=== PATIENT | male | born 1930 | race Caucasian/White ===

== ENCOUNTER 2016-12-24 10:53 | Inpatient (IN) ==
--- NOTE | 2016-12-23 21:45 | Discharge Summary ---
<Katrina Salguero - Last Filed: 12/23/16 21:41> Date of Encounter: 12/23/16 - Discharge Diagnosis (1) Arthritis of knee, left Priority: Primary Status: Acute (2) Status post total knee replacement, left Priority: Primary Status: Acute (3) BPH (benign prostatic hyperplasia) Priority: Secondary Status: Chronic Qualifiers: Lower urinary tract symptom presence: unspecified whether lower urinary tract symptoms present Qualified Code(s): N40.0 - Benign prostatic hyperplasia without lower urinary tract symptoms - Discharge Medications Home Medications: Aspirin Enteric Coated [Aspirin EC] 325 mg PO DAILY #21 tablet. 12/23/16 [Rx] OxyCODONE Immed Rel [Roxicodone 5 MG] 5 - 10 mg PO Q6HR PRN #40 tablet 12/23/16 [Rx] Artificial Tears SOLN [Akwa Tears] 1 drop BOTH EYES QID 12/24/16 [History] Ascorbic Acid/Vitamin E/Biotin [Hair Skin Nails-Biotin Gummies] 1 each PO DAILY 12/24/16 [History] Calcium Carbonate [Calcium] 500 mg PO DAILY 12/24/16 [History] Cholecalciferol (D-3) [Vitamin D] 2,000 unit PO DAILY 12/24/16 [History] Garlic 1,000 mg PO DAILY 12/24/16 [History] [place]-3/Dha/Epa/Fish Oil [Fish Oil 1,000 mg Softgel] 1 each PO DAILY 12/24/16 [ History] Tamsulosin [Flomax] 0.4 mg PO DAILY 12/24/16 [History] Vitamin B Complex [B Complex] 1 each PO DAILY 12/24/16 [History] Vitamin E Acid Succinate [Vitamin E] 400 units PO DAILY 12/24/16 [History] Allergies/Adverse Reactions: 3 Allergy/AdvReac Type Severity Reaction Status Date / Time No Known Allergies Allergy Verified 12/24/16 12:35 [facility] - Patient Status Disposition: Home, Self-Care Condition: Good - Discharge Instructions Follow Up With: [facility] [Primary Care Provider] - - Hospital Course Hospital course: Mr. Orourke is a 86 year old male - Time Spent with Patient Total time spent providing and/or coordinating discharge services: <Lane Fuentes - Last Filed: 08/29/17 06:43> Date of Encounter: 12/25/16 Time of Encounter: 06:42 - Discharge Diagnosis (1) Arthritis of knee, left Priority: Primary Status: Chronic (2) Status post total knee replacement, left Priority: Primary Status: Acute (3) BPH (benign prostatic hyperplasia) Priority: Secondary Status: Chronic Qualifiers: Lower urinary tract symptom presence: unspecified whether lower urinary tract symptoms present Qualified Code(s): N40.0 - Benign prostatic hyperplasia without lower urinary tract symptoms [facility] care physician: [facility] - Patient Status Functional capacity at discharge: uses cane/walker Overall status at discharge: patient is progressing back to baseline - Hospital Course Hospital course: Mr. Orourke is a 86 year old male Status post left total knee replacement The patient had an uneventful postoperative course. They received antibiotics and physical therapy and were discharged in stable condition. There will follow -up in the office in 2 weeks. - Time Spent with Patient Total time spent providing and/or coordinating discharge services:
--- NOTE | 2016-12-24 11:14 | History & Physical Report ---
Date of Encounter: 12/24/16 Time of Encounter: 11:13 24 Hour HP Update - Instructions Instructions: If the History and Physical is less than 30 days old and was completed prior to A.M. admission and or procedure and has NOT been updated on calendar day of procedure please complete this update prior to performing procedure. - Update Patient reports changes in Medical Condition: No Changes in examination, assessment, or condition: No Changes in Medication: No Preop tests/diagnostics Reviewed: Yes Surgery Remains Indicated: Yes Consent for Planned Operative Procedure(s) Verified: Yes - Pre-Operative Checklist Preoperative Checklist Indicated: No Prophylactic Antibiotic Ordered: Yes Is VTE Prophylaxis Indicated?: Yes
[2016-12-24] MEDS ORDERED: Gabapentin 300 MG CAPSULE PO ONE (11:22)
[2016-12-24] MEDS ORDERED: Famotidine 20 MG/2 ML VIAL IVP ONE (11:22)
[2016-12-24] MEDS ORDERED: Acetaminophen IV 1,000 MG/100 ML INFUS..BTL IVPB ONE (11:23)
[2016-12-24] MEDS ORDERED: *HR* FentaNYL (PF) 100 MCG/2 ML VIAL ONE (11:24)
[2016-12-24] MEDS ORDERED: *HR* Propofol 200 MG/20 ML VIAL IVP ONE (11:24)
[2016-12-24] MEDS ORDERED: *HR* Midazolam HCl 2 MG/2 ML VIAL ONE (11:24)
[2016-12-24] MEDS ORDERED: Lidocaine -MPF 2% 2 ML VIAL ONE (11:28)
[2016-12-24] MEDS ORDERED: Plasma-Lyte A (PH 7.4) 1,000 ML IVC SCH (11:30)
[2016-12-24] MEDS ORDERED: CeFAZolin Pre 2,000 MG/100 ML 2,000 MG/100 ML BAG IVPB ONE (11:49)
--- NOTE | 2016-12-24 12:10 | Anesthesia Evaluation PreOp ---
Date of Encounter: 12/24/16 Time of Encounter: 12:10 - Past History Planned Operation: Left TKA Cardiac History: Denies any Significant Hx Pulmonary History: Former smoker SECURITY GUARD DISPATCHER History: Denies Any Significant HX Other Medical History: Denies Any Significant HX, Other (OA Knee) Anesthesia History: No Prior Anesthetic Complications Alcohol Use: occasionally Drug use: none Medications and Allergies Aspirin Enteric Coated [Aspirin EC] 325 mg PO DAILY #21 tablet. 12/23/16 [Rx] OxyCODONE Immed Rel [Roxicodone 5 MG] 5 - 10 mg PO Q6HR PRN #40 tablet 12/23/16 [Rx] 3 Allergy/AdvReac Type Severity Reaction Status Date / Time No Known Allergies Allergy Verified 12/12/16 09:03 - Meds/Allergy Pre-op Review Medications Reviewed: Yes Allergies Reviewed: Yes Beta Blockers on Current Med List: No Anesthesia Results - Labs Laboratory Tests 12/12/16 12/12/16 12/13/16 10:19 10:19 08:25 Hgb 14.6 Hct 44.3 Plt Count 187 Sodium 139 Potassium 5.0 H BUN 23 Creatinine 0.96 - Imaging EKG: report reviewed (SB) Anesthesia Exam O2 Sat Height 1.7 m Height 1.7 m Height 1.7 m Weight 84.368 kg Weight 84.368 kg Weight 84.368 kg O2 Sat by Pulse Oximetry 98 O2 Sat by Pulse Oximetry 98 Vital Signs Temp Pulse Resp BP Pulse Ox 97.8 F 53 18 135/67 98 12/24/16 11:25 12/24/16 11:25 12/24/16 11:25 12/24/16 11:25 12/24/16 11:25 Height: 5'7 Weight: 186 lbs NPO (# of Hours): MN Pain Scale: 0 - HEENT Pupil (Motor): Pupils equal, EOMI Mallampati: II Teeth: Normal Oral Opening: Greater than 3 - SECURITY GUARD DISPATCHER LOC: Oriented SECURITY GUARD DISPATCHER Motor: Normal RUE, Normal LUE, Normal RLE, Normal LLE, Normal Face SECURITY GUARD DISPATCHER Sensory: Normal: RUE, LUE, RLE, LLE, Face - Cardiac Rhythm: Regular Murmur: None JVD: No Carotid Bruit: No - Pulmonary Breath Sounds: bilateral Clear Respiratory Effort: Symmetrical Anesthesia Assess/Plan ASA Score: 2 Modified Wilver Scale for Level of Consciousness: Cooperative, oriented, and tranquil Anesthetic Plan: General, Regional Monitoring Plan: Standard Monitors Recovery Plan: PACU (Discussed GA and RA, agrees to proceed)
[2016-12-24] MEDS ORDERED: ROPIVACAINE HCL/PF 0.5% 30 ML VIAL ONE (12:24)
[2016-12-24] MEDS ORDERED: Bupivacaine/Clonidine Syringe 1 EACH SYRINGE ONE (12:25)
--- NOTE | 2016-12-24 12:46 | Anesthesia Procedures ---
Date of Encounter: 12/24/16 Time of Encounter: 12:44 Procedures: Anesthesia - Nerve Block Procedure Date: 12/24/16 Time: 12:44 Allergies/Adv Reactions: Allergies No Known Allergies Allergy (Verified 12/24/16 12:35) Pre-op Diagnosis: oa left knee Surgical Procedure: left total knee Checklist: Correct Patient Identifier, Correct procedure, History checked Correct side: Left Blood Thinner: No Monitor Applied: EKG, BP, Pulse Oximetry Sedation: Versed (mg): 1 Sedation: Fentanyl (mcg): 100 Indication: Post Op Analgesia Pre-op Neuro Deficits: No Block Type: Femoral (30cc 0.5%ropivicaine), Other (iPACK 20cc 0.25% bupivicaine) Catheter placed: No Sterile Technique: Yes Ultrasound used: Yes Anatomy identified: Yes Visual spread of Local: Yes Neuro Stimulation: Yes Nerve Stimulator Range: 0.2 - 0.4 mA Blood on Needle Aspiration: No Smooth Injection of Local: Yes Pain with Injection of Local: No Prep: Chlorhexadine Needle: 22 x 50 mm Stimuplex Local: 0.25% Bupivicaine w/Clonidine 20 mcg/cc, Ropivacaine Volume (cc): 50 Number of Attempts: 1 Complications: None/effective block
[2016-12-24] MEDS ORDERED: Ondansetron 4 MG/2 ML VIAL IVP ONE (12:47)
[2016-12-24] MEDS ORDERED: *HR* Labetalol 20 MG/4 ML SYRINGE IVP PRN (12:47)
[2016-12-24] MEDS ORDERED: EPHEDrine 50 MG/ML VIAL ONE (13:04)
[2016-12-24] MEDS ORDERED: Dexamethasone 4 MG/ML VIAL ONE (13:16)
[2016-12-24] MEDS ORDERED: Ondansetron 4 MG/2 ML VIAL ONE (13:16)
--- NOTE | 2016-12-24 13:43 | Orthopedic Operative Note ---
Date of procedure: 12/24/16 Pre-op diagnosis: Left knee arthritis Post-op diagnosis: same Procedure: Procedure: Left Total knee replacement Estimated blood loss: 400 cc Hardware: Metal and polyethylene replacement. Arthrex Femur: 7 Tibia: 7 PS insert: 14 Patella: 40 Exam Under anesthesia: Full flexion and extension no instability Procedural Notes: Grade 4 arthritic changes all 3 compartments Operative procedure: The patient was brought to the operating room and placed on the operating room table. After general anesthesia was administered the operative knee was examined. Findings were noted in the exam under anesthesia. The operative extremity was prepped and draped in sterile surgical fashion. The patient received IV antibiotics prior to skin incision. A standard midline incision was made centered over the patella. The incision was made through the skin and subcutaneous tissue. A medial parapatellar tendon approach was performed. Care was taken to preserve tissue along the medial aspect of the patella. And to protect the patella tendon. The deep MCL was released off the medial tibia. The infra patella fat pad was excised. Knee was brought into flexion. Patient noted to have grade 4 arthritic changes all 3 compartments. The entry hole was made for the intramedullary femoral guide. The guide was seated in 6 degrees of valgus. Anterior cut was made followed by the distal cut. The ACL the PCL the medial and the lateral menisci were excised. The tibia was subluxed forward. The entry hole was made for the intramedullary tibial guide. Guide was seated to resect 2 mm off the more abnormal side. The knee was brought into flexion the distal femur was sized to a 7. The femoral guide was seated, the anterior cut was made followed by the posterior condylar cut, followed by the chamfer cuts. The finishing guide was seated the box cut was made and the lug holes were drilled. The tibia was sized to a 7, the tibial tray was seated and prepared with the large drill followed by the fin cutter. Trial reduction revealed full extension no varus valgus instability with the appropriate 14 PS Juliet. The patella was everted and cut was made at the level of the insertion of the quadriceps and patella tendon. The patella was sized to a 40 the guide was seated and the lug holes are drilled. Trial reduction revealed excellent patella tracking. All trial components were removed all bony surfaces were irrigated. The tibia was cemented first followed by the femur. The 14 PS Juliet was seated and the knee was brought into full extension. The patella was cemented and held in place with the patellar holding clamp. After the cement had hardened, the knee sat for 2 minutes with a Betadine saline solution. The knee was then irrigated out with 2 L of pulse irrigation. The knee was closed by the PA. The extensor mechanism was closed with #2 FiberWire suture and #2 PDS suture. The subcutaneous tissue was then irrigated and closed deep with #1 PDS suture superficially with 0 PDS suture and skin was closed with skin gabriela. The patient was then placed in a sterile dressing and a postoperative brace extubated and transferred to recovery room in stable condition. Anesthesia: ALAN Surgeon: Lane Fuentes Manager Net: Katrina Salguero Condition: stable Disposition: PACU
[2016-12-24] MEDS: *HR* HYDROmorphone (PF) 1 MG/ML SYRINGE IVP PRN ×2 (14:33→14:38)
--- NOTE | 2016-12-24 14:35 | Anesthesia Evaluation Post Op ---
Date of Encounter: 12/24/16 Time of Encounter: 14:40 - Vital Signs Vital Signs: Vital Signs/O2 Sat/Glucose, Most Current Temp Pulse Resp BP Pulse Ox 12/24/16 14:11 97.5 F L 52 18 157/78 98 12/24/16 12:40 48 16 117/66 100 12/24/16 12:29 48 132/82 94 12/24/16 11:57 97.8 F 53 18 135/67 98 12/24/16 11:25 97.8 F 53 18 135/67 98 - Lungs Lungs: Clear Ascult./Percussion - Airway Airway: Non-obstructed - Cardiovascular Regular Rate - Mental Status Mental Status: Alert & Oriented, Answers Appropriately - Pain Pain Scale: 0 - Nausea Vomiting Nausea Vomiting: Not Present - Hydration Hydration: Ice chips - Discharge PostOp Status: Transfer Patient to floor
[2016-12-24 14:37] LABS: Hematocrit 38.8 % (37.5-50.1); Hemoglobin 12.7 g/dL (12.9-16.9)
[2016-12-24] MEDS ORDERED: Sennosides 8.6 MG TABLET PO PRN (15:02)
[2016-12-24] MEDS ORDERED: Ringers Solution, Lactated 1,000 ML IVC SCH (15:02)
[2016-12-24] MEDS ORDERED: MOM Conc 10 ML UD.LIQ PO PRN (15:02)
[2016-12-24] MEDS ORDERED: *HR* OxyCODONE Immed Rel 5 MG TABLET PO PRN (15:02)
[2016-12-24] MEDS ORDERED: Naloxone 0.4 MG/ML INJ IVP PRN (15:02)
[2016-12-24] MEDS: ceFAZolin 2,000 MG in D5% in Water 100 ML IVPB SCH (17:52)
[2016-12-24] MEDS: *HR* Enoxaparin 30 MG/0.3 ML SYRINGE SQ SCH (17:53)
[2016-12-24] MEDS: Artificial Tears SOLN 15 ML BOTTLE BOTH EYES SCH ×2 (17:53→21:09)
[2016-12-24] MEDS ORDERED: *HR* Enoxaparin 30 MG/0.3 ML SYRINGE SQ SCH (18:00)
[2016-12-24] MEDS ORDERED: Temazepam 15 MG CAPSULE PO PRN (21:00)
[2016-12-25] MEDS: ceFAZolin 2,000 MG in D5% in Water 100 ML IVPB SCH
[2016-12-25] MEDS: *HR* OxyCODONE Immed Rel 5 MG TABLET PO PRN ×4 (01:34→15:28)
[2016-12-25 05:18] LABS: BUN/Creatinine Ratio 17 (6-26); Blood Urea Nitrogen 17 mg/dL (8-26); Calcium 8.1 mg/dL (8.6-10.8); Carbon Dioxide 27 mEq/L (19-29); Chloride 100 mEq/L (98-109); Glucose 131 mg/dL (70-99); Osmolality,Calculated 283 (280-300); Potassium 4.9 mEq/L (3.5-4.5); Sodium 135 mEq/L (136-145); eGFR For African Americans > 60 (> 60); eGFR For Non-African Americans > 60 (> 60)
[2016-12-25] MEDS: *HR* Enoxaparin 30 MG/0.3 ML SYRINGE SQ SCH ×2 (05:45→18:56)
--- NOTE | 2016-12-25 06:44 | Orthopedics Progress Note ---
Date of Encounter: 12/25/16 Time of Encounter: 06:43 - Assessment and Plan (1) Arthritis of knee, left Current Visit: Yes Status: Chronic (2) Status post total knee replacement, left Current Visit: Yes Status: Acute (3) BPH (benign prostatic hyperplasia) Current Visit: Yes Status: Chronic Qualifiers: Lower urinary tract symptom presence: unspecified whether lower urinary tract symptoms present Qualified Code(s): N40.0 - Benign prostatic hyperplasia without lower urinary tract symptoms Subjective Interval history: Patient was seen this morning doing well without complaints. Afebrile vital signs stable. Operative extremity: Neurovascularly intact Dressing clean dry and intact Calves nontender Assessment and plan: Continue with postoperative care Hematocrit 35 discharged today Objective Vital signs: Vital Signs Temp Pulse Resp BP Pulse Ox 12/25/16 03:55 98.2 F 51 18 131/61 96 12/24/16 23:35 97.7 F 53 18 113/59 98 12/24/16 19:09 97.6 F 54 16 118/61 97 12/24/16 18:03 50 14 117/71 96 12/24/16 15:56 97.5 F L 48 16 128/59 96 12/24/16 15:08 97.6 F 54 16 123/71 98 12/24/16 15:01 97.1 F L 56 16 118/73 95 12/24/16 14:51 54 16 139/68 97 12/24/16 14:41 97.1 F L 51 16 133/63 96 12/24/16 14:31 45 14 139/70 99 12/24/16 14:21 49 13 121/68 98 12/24/16 14:11 97.5 F L 52 18 157/78 98 12/24/16 12:40 48 16 117/66 100 12/24/16 12:29 48 132/82 94 12/24/16 11:57 97.8 F 53 18 135/67 98 12/24/16 11:25 97.8 F 53 18 135/67 98 Intake and Output 12/24/16 12/24/16 12/25/16 15:59 23:59 07:59 Intake Total 200 / 200 340 / 340 100 / 100 Output Total 400 / 400 0 / 0 1225 / 1225 Balance -200 / -200 340 / 340 -1125 / -1125 Intake: IV Fluids 100 / 100 100 / 100 Ancef 2,000 MG In 100 / 100 100 / 100 Dextrose 5% 100 ML @ 200 mls/hr IVPB Q8HR [facility] Rx#: [id number] Oral 200 / 200 240 / 240 Output: Urine 0 / 0 0 / 0 1225 / 1225 Estimated Blood Loss 400 / 400 Other: Weight 84.368 kg 86.18 kg Patient Weight 12/25/16 23:59 Weight 86.18 kg - Labs CBC & BMP: 12/25/16 04:27 12/25/16 04:27 Labs: Abnormal lab results Hgb 12.0 g/dL (12.9-16.9) L 12/25/16 04:27 Hct 35.0 % (37.5-50.1) L 12/25/16 04:27 Sodium 135 mEq/L (136-145) L 12/25/16 04:27 Potassium 4.9 mEq/L (3.5-4.5) H 12/25/16 04:27 Glucose 131 mg/dL (70-99) H 12/25/16 04:27 Calcium 8.1 mg/dL (8.6-10.8) L 12/25/16 04:27 - VTE Documentation of Mechanical Device: Venous foot pump, device Consult Discharge Plan - Plan [facility]errals: [facility] [Primary Care Provider] -
[2016-12-25] MEDS: ASCORBIC ACID PO SCH (08:18)
[2016-12-25] MEDS: VITAMIN B COMPLEX PO SCH (08:18)
[2016-12-25] MEDS: BIOTIN PO SCH (08:18)
[2016-12-25] MEDS: (Omega-3/Dha/Epa/Fish Oil [Fish Oil 1,000 Mg Softgel]) PO SCH (08:18)
[2016-12-25] MEDS: VITAMIN E PO SCH (08:18)
[2016-12-25] MEDS: Cholecalciferol (D-3) 1,000 UNIT TABLET PO SCH (08:20)
[2016-12-25] MEDS: Artificial Tears SOLN 15 ML BOTTLE BOTH EYES SCH ×4 (08:21→21:21)
--- NOTE | 2016-12-25 12:13 | Event Note ---
Date of Encounter: 12/26/16 Time of Encounter: 12:12 PCR - Left TKR - POD#1 - *Zipline Patient seen at bedside. Labs stable. Resting in bed. Discussed care with family Pain control: adequate Participating in PT. All questions and concerns addressed. Educated on use of incentive spirometer, ambulation, and hydration. Patient educated on post-operative restrictions and care. Addressed: See above D/C plan:. PT recommending Swingbed
--- NOTE | 2016-12-25 12:15 | Physician Discharge Referral ---
<Katrina Salguero - Last Filed: 12/25/16 12:13> [facility] Referral Info Transfer To: F Provider in Charge after Transfer: PCP Institutional Level of Care: Skilled - Diagnosis (1) Arthritis of knee, left Priority: Primary Status: Chronic (2) Status post total knee replacement, left Priority: Primary Status: Acute (3) BPH (benign prostatic hyperplasia) Priority: Secondary Status: Chronic Expected Duration of Placement: < 30 days Prognosis: Good Aware of Diagnosis: Patient Aware of Prognosis: Patient - Transfer Medications Home Medications: Aspirin Enteric Coated [Aspirin EC] 325 mg PO DAILY #21 tablet. 12/23/16 [Rx] OxyCODONE Immed Rel [Roxicodone 5 MG] 5 - 10 mg PO Q6HR PRN #40 tablet 12/23/16 [Rx] Artificial Tears SOLN [Akwa Tears] 1 drop BOTH EYES QID 12/24/16 [History] Ascorbic Acid/Vitamin E/Biotin [Hair Skin Nails-Biotin Gummies] 1 each PO DAILY 12/24/16 [History] Calcium Carbonate [Calcium] 500 mg PO DAILY 12/24/16 [History] Cholecalciferol (D-3) [Vitamin D] 2,000 unit PO DAILY 12/24/16 [History] Garlic 1,000 mg PO DAILY 12/24/16 [History] [place]-3/Dha/Epa/Fish Oil [Fish Oil 1,000 mg Softgel] 1 each PO DAILY 12/24/16 [ History] Tamsulosin [Flomax] 0.4 mg PO DAILY 12/24/16 [History] Vitamin B Complex [B Complex] 1 each PO DAILY 12/24/16 [History] Vitamin E Acid Succinate [Vitamin E] 400 units PO DAILY 12/24/16 [History] Ketorolac Tromethamine [Acular] 1 drop OP TID 12/25/16 [History] Allergies/Adverse Reactions: 3 Allergy/AdvReac Type Severity Reaction Status Date / Time No Known Allergies Allergy Verified 12/24/16 12:35 - Respiratory Orders None Smoking Cessation: Smoking cessation has been advised. For more information, call the [place] Tobacco Quit Line at 3-728-BCPK-NOW. - Ancillary Orders May use pressure relief devices daily prn, May go on SHERRILL w/family/respon libertarian w /meds at nurse discretion PRN, May consult with Dentist, Director Biomedical Engineering, Contact Lens Blocker PRN - Mobility Orders Chair, Ambulate - Rehabiliation Orders Rehab Potential: Good Rehab Orders: ROM Exercises, Evaluation for Physical Therapy, Evaluation for Occupational Therapy Other: Opsite dressing, leave intact until first post-operative visit. Zipline Closure* plan to remove at post-operative day #14-16. If dressing becomes >50% saturated, contact office, remove dressing and place appropriate dressing in its place. Do not allow for dressing to get wet. Total Joint Precautions x 6 weeks Apply cold therapy wrap 3-6x/day for 20 minutes at a time. Encourage ambulation throughout the day Use Incentive spirometer 10x/hour. Elevate affected extremity above heart as tolerated. Brace: Wear knee immobilizer at night x 2 weeks. CERTIFICATION: I certify that the transfer of the above named patient to an Extended Care Facility is necessary for the continuing treatment of the diagnosis listed. The above information is true and accurate reflection of patient's current condition. Confidential - Redisclosure prohibited without a patient's written consent. <Lane Fuentes - Last Filed: 12/27/16 05:51> - Diagnosis (1) Arthritis of knee, left Status: Chronic (2) Status post total knee replacement, left Status: Acute (3) BPH (benign prostatic hyperplasia) Status: Chronic - Respiratory Orders Smoking Cessation: Smoking cessation has been advised. For more information, call the [place] Tobacco Quit Line at 6-929-GFRL-NOW. CERTIFICATION: I certify that the transfer of the above named patient to an Extended Care Facility is necessary for the continuing treatment of the diagnosis listed. The above information is true and accurate reflection of patient's current condition. Confidential - Redisclosure prohibited without a patient's written consent.
[2016-12-25] MEDS: Ketorolac OPTH Soln 5 ML BOTTLE BOTH EYES SCH ×2 (15:30→21:21)
--- NOTE | 2016-12-25 16:58 | Electrocardiograph Report ---
[address] [address] Test Date: 2016-12-24 Pat Name: Wood Orourke Department: 106 Room: [facility] Gender: M Fiscal Services Director: : [id number] Requested By: Lane Fuentes Order Number: [id number] Reading MD: Arely Munoz Measurements Intervals [place] Rate: 46 P: 53 ME: 196 QRS: 37 QRSD: 96 T: 52 QT: 439 QTc: 397 Interpretive Statements SINUS BRADYCARDIA Electronically Signed On 12-25-2016 16:57:03 EDT by Arely Munoz
[2016-12-25] MEDS: *HR* HYDROmorphone (PF) 1 MG/ML SYRINGE IVP PRN (21:17)
[2016-12-26] MEDS: *HR* HYDROmorphone (PF) 1 MG/ML SYRINGE IVP PRN ×2 (01:14→06:18)
[2016-12-26] MEDS: *HR* OxyCODONE Immed Rel 5 MG TABLET PO PRN ×2 (03:54→10:03)
[2016-12-26] MEDS: *HR* Enoxaparin 30 MG/0.3 ML SYRINGE SQ SCH ×2 (06:18→17:12)
[2016-12-26] MEDS: Ondansetron 4 MG/2 ML VIAL IVP PRN ×2 (06:22→13:45)
--- NOTE | 2016-12-26 06:43 | Orthopedics Progress Note ---
Date of Encounter: 12/26/16 Time of Encounter: 06:42 - Assessment and Plan (1) Arthritis of knee, left Current Visit: Yes Status: Chronic (2) Status post total knee replacement, left Current Visit: Yes Status: Acute (3) BPH (benign prostatic hyperplasia) Current Visit: Yes Status: Chronic Qualifiers: Lower urinary tract symptom presence: unspecified whether lower urinary tract symptoms present Qualified Code(s): N40.0 - Benign prostatic hyperplasia without lower urinary tract symptoms Subjective Interval history: Patient was seen this morning doing well without complaints. Afebrile vital signs stable. Operative extremity: Neurovascularly intact Dressing clean dry and intact Calves nontender Assessment and plan: Continue with postoperative care Discharge held patient went placement to [facility] BEDS AT [facility] Objective Vital signs: Vital Signs Temp Pulse Resp BP Pulse Ox 12/26/16 04:25 99.4 F 84 18 154/72 94 12/25/16 23:29 98.9 F 79 20 155/72 95 12/25/16 19:08 98.6 F 68 17 122/62 98 12/25/16 15:14 62 16 144/52 95 12/25/16 10:52 97.5 F L 56 16 134/66 98 12/25/16 07:10 98.7 F 53 16 118/61 97 Intake and Output 12/25/16 12/25/16 12/26/16 15:59 23:59 07:59 Intake Total 600 / 600 340 / 340 Output Total 0 / 0 625 / 625 Balance 600 / 600 340 / 340 -625 / -625 Intake: Oral 600 / 600 340 / 340 Output: Urine 0 / 0 625 / 625 Other: Meal Breakfast Dinner Percent of Meal Consumed 100% 100% # Voids 1 1 Weight 86.818 kg Patient Weight 12/26/16 23:59 Weight 86.818 kg - Labs CBC & BMP: 12/25/16 04:27 12/25/16 04:27 Labs: Abnormal lab results Hgb 12.0 g/dL (12.9-16.9) L 12/25/16 04:27 Hct 35.0 % (37.5-50.1) L 12/25/16 04:27 Sodium 135 mEq/L (136-145) L 12/25/16 04:27 Potassium 4.9 mEq/L (3.5-4.5) H 12/25/16 04:27 Glucose 131 mg/dL (70-99) H 12/25/16 04:27 Calcium 8.1 mg/dL (8.6-10.8) L 12/25/16 04:27 - VTE Documentation of Mechanical Device: Venous foot pump, device Consult Discharge Plan - Plan Referrals: [facility] [Primary Care Provider] -
[2016-12-26 07:35] LABS: Hematocrit 32.8 % (37.5-50.1); Hemoglobin 11.1 g/dL (12.9-16.9)
[2016-12-26 07:57] LABS: BUN/Creatinine Ratio 21 (6-26); Blood Urea Nitrogen 20 mg/dL (8-26); Calcium 8.5 mg/dL (8.6-10.8); Carbon Dioxide 25 mEq/L (19-29); Chloride 100 mEq/L (98-109); Glucose 105 mg/dL (70-99); Osmolality,Calculated 279 (280-300); Sodium 133 mEq/L (136-145); eGFR For African Americans > 60 (> 60); eGFR For Non-African Americans > 60 (> 60)
[2016-12-26] MEDS: VITAMIN B COMPLEX PO SCH (09:53)
[2016-12-26] MEDS: Cholecalciferol (D-3) 1,000 UNIT TABLET PO SCH (09:53)
[2016-12-26] MEDS: VITAMIN E PO SCH (09:54)
[2016-12-26] MEDS: ASCORBIC ACID PO SCH (09:54)
[2016-12-26] MEDS: BIOTIN PO SCH (09:54)
[2016-12-26] MEDS: (Omega-3/Dha/Epa/Fish Oil [Fish Oil 1,000 Mg Softgel]) PO SCH (09:54)
[2016-12-26] MEDS: Ketorolac OPTH Soln 5 ML BOTTLE BOTH EYES SCH ×3 (09:58→22:09)
[2016-12-26] MEDS: Artificial Tears SOLN 15 ML BOTTLE BOTH EYES SCH ×4 (09:59→22:10)
--- NOTE | 2016-12-26 11:40 | Event Note ---
Date of Encounter: 12/26/16 Time of Encounter: 11:40 PCR - Left TKR - POD#2 - *Zipline Patient seen at bedside. Patient sitting in chair upon arrival asleep - aroused easily. Patient disoriented stating "I don't know" to nearly all questions including time of day and location. Pupils constricted with very little light reactivity noted. Labs stable Pain control: adequate - Dilaudid d/c'd today secondary to above examination. Patient given Narcan. Approximately 1 hour following administration - patient reexamined with normal pupil size and reactivity. patient much more alert and coherent with his speech. Will supplement with non-opiate medications during Narcan window and resume PO opiate pain medication as needed thereafter. Participating in PT. All questions and concerns addressed. Educated on use of incentive spirometer, ambulation, and hydration. Patient educated on post-operative restrictions and care. Addressed: See above D/C plan:. PT recommending Swingbed, awaiting discharge possibly 12/27/16
[2016-12-26] MEDS ORDERED: diazePAM 2 MG TABLET PO PRN (13:19)
[2016-12-26] MEDS ORDERED: Ketorolac 30 MG/ML VIAL IVP PRN (13:21)
[2016-12-26] MEDS: Acetaminophen 325 MG TABLET PO PRN (22:12)
[2016-12-27] MEDS: *HR* Enoxaparin 30 MG/0.3 ML SYRINGE SQ SCH (05:47)
--- NOTE | 2016-12-27 05:50 | Orthopedics Progress Note ---
Date of Encounter: 12/27/16 Time of Encounter: 05:50 - Assessment and Plan (1) Arthritis of knee, left Current Visit: Yes Status: Chronic (2) Status post total knee replacement, left Current Visit: Yes Status: Acute (3) BPH (benign prostatic hyperplasia) Current Visit: Yes Status: Chronic Qualifiers: Lower urinary tract symptom presence: unspecified whether lower urinary tract symptoms present Qualified Code(s): N40.0 - Benign prostatic hyperplasia without lower urinary tract symptoms Subjective Interval history: Patient was seen this morning doing well without complaints. Afebrile vital signs stable. Operative extremity: Neurovascularly intact Dressing clean dry and intact Calves nontender Assessment and plan: Continue with postoperative care Discharge today Objective Vital signs: Vital Signs Temp Pulse Resp BP Pulse Ox 12/27/16 00:14 98.9 F 96 17 144/68 95 12/26/16 19:16 98.7 F 92 16 140/66 95 12/26/16 13:28 78 16 137/65 98 12/26/16 12:15 98.4 F 83 16 154/73 97 12/26/16 10:37 98.7 F 93 16 144/83 96 12/26/16 06:38 99.1 F 87 16 147/78 95 Intake and Output 12/26/16 12/26/16 12/27/16 15:59 23:59 07:59 Intake Total 720 / 720 Output Total 950 / 950 550 / 550 950 / 950 Balance -230 / -230 -550 / -550 -950 / -950 Intake: Oral 720 / 720 Output: Urine 950 / 950 550 / 550 950 / 950 Other: Meal Lunch Percent of Meal Consumed 50% Weight 86 kg Patient Weight 12/27/16 23:59 Weight 86 kg - Labs CBC & BMP: 12/26/16 06:30 12/26/16 06:30 Labs: Abnormal lab results Hgb 11.1 g/dL (12.9-16.9) L 12/26/16 06:30 Hct 32.8 % (37.5-50.1) L 12/26/16 06:30 Sodium 133 mEq/L (136-145) L 12/26/16 06:30 Glucose 105 mg/dL (70-99) H 12/26/16 06:30 Calculated Osmolality 279 (280-300) L 12/26/16 06:30 Calcium 8.5 mg/dL (8.6-10.8) L 12/26/16 06:30 - VTE Documentation of Mechanical Device: Venous foot pump, device Consult Discharge Plan - Plan Referrals: [facility] [Primary Care Provider] -
[2016-12-27] MEDS: Acetaminophen 325 MG TABLET PO PRN (05:51)
[2016-12-27] MEDS: Cholecalciferol (D-3) 1,000 UNIT TABLET PO SCH (08:24)
[2016-12-27] MEDS: VITAMIN E PO SCH (08:25)
[2016-12-27] MEDS: BIOTIN PO SCH (08:25)
[2016-12-27] MEDS: (Omega-3/Dha/Epa/Fish Oil [Fish Oil 1,000 Mg Softgel]) PO SCH (08:25)
[2016-12-27] MEDS: VITAMIN B COMPLEX PO SCH (08:25)
[2016-12-27] MEDS: ASCORBIC ACID PO SCH (08:25)
[2016-12-27] MEDS: Ketorolac OPTH Soln 5 ML BOTTLE BOTH EYES SCH (08:26)
[2016-12-27] MEDS: Artificial Tears SOLN 15 ML BOTTLE BOTH EYES SCH (08:27)
[2016-12-27 10:18] VITALS: BP 139/78
--- NOTE | 2016-12-27 12:34 | Event Note ---
Date of Encounter: 12/27/16 Time of Encounter: 12:33 PCR - Left TKR - POD#3 - *Leonid D/Peng'ed today
== END 2016-12-27 12:38 | disposition home or self-care (01) | DRG 470 ==
LOC: SAMDAY 10:53 → 3NENU 15:29
PROVIDERS: ADMIT Orthopaedic Surgery; ATTEND Orthopaedic Surgery